=== PATIENT | female | born 1960 | race Hispanic/Latino ===

== ENCOUNTER 2020-01-30 20:23 | Inpatient (IN) | payer OTHER ==
[~2020-01-30] VITALS: Ht 157.5 cm; Wt 57.1 kg
[2020-01-30 20:53] LABS: APPEARANCE,URINE Clear (CLEAR); BILIRUBIN,URINE Negative (NEGATIVE); COLOR,URINE Yellow (YELLOW); GLUCOSE, URINE (UA) Negative (NEGATIVE); KETONES,URINE Negative (NEGATIVE); LEUKOCYTE ESTERASE ,URINE Negative (NEGATIVE); NITRATE,URINE Negative (NEGATIVE); OCCULT BLOOD,URINE Negative (NEGATIVE); PH,URINE >=9.0 (5.0-8.0); PROTEIN,URINE Negative (NEGATIVE); UROBILINOGEN,URINE 0.2 mg/dL (0.2-1.0)
[2020-01-30 20:53] LABS: BASOPHILS % (AUTO) 0.4 % (0.0-5.0); EOSINOPHILS % (AUTO) 2.3 % (0.0-8.0); HEMATOCRIT 38.6 % (36-48); LYMPHOCYTES % (AUTO) 43.4 % (21.0-51.0); MEAN CORPUSCULAR HEMOGLOBIN 30.6 pg (27.0-33.0); MEAN CORPUSCULAR HGB CONC 34.2 g/dL (32.0-36.0); MEAN CORPUSCULAR VOLUME 89.6 fL (79-99); MONOCYTES % (AUTO) 10.8 % (3.0-13.0); NEUTROPHILS % (AUTO) 42.9 % (40.0-77.0); PLATELET COUNT (AUTO) 200 K/uL (130-400); RED BLOOD CELL COUNT(AUTO) 4.31 MIL/uL (4.00-5.50); RED CELL DISTRIBUTION WIDTH 12.1 % (11.0-15.5); WHITE BLOOD COUNT (AUTO) 5.6 K/uL (4.8-10.8)
[2020-01-30 21:04] LABS: CREATININE 0.8 mg/dL (0.5-1.5); POTASSIUM 4.1 mmol/L (3.5-5.1)
[2020-01-30] MEDS ORDERED: MECLIZINE HCL 25 MG TABLET ONE (21:04)
[2020-01-30] MEDS ORDERED: ONDANSETRON HCL 4 MG/2 ML VIAL ONE (21:05)
[2020-01-30 21:08] LABS: BILIRUBIN,TOTAL 0.4 mg/dL (0.2-1.0); TOTAL PROTEIN, SERUM 7.8 g/dL (6.0-8.3)
[2020-01-31] MEDS ORDERED: IOHEXOL 350 MG/ML 100ML INFUS..BTL IV ONE (00:24)
[2020-01-31] MEDS ORDERED: ACETAMINOPHEN 325 MG TAB PO PRN ×2 (00:45)
[2020-01-31] MEDS ORDERED: ONDANSETRON HCL 4 MG/2 ML VIAL IV PRN (00:45)
[2020-01-31] MEDS ORDERED: MAG HYDROX/AL HYDROX/SIMETH ES 30 ML SUSP UDCUP PO PRN (00:45)
[2020-01-31 03:48] VITALS: BP 132/77
--- NOTE | 2020-01-31 04:05 | NUR ---
ADMIT PT ADMITTED TO ROOM 327, AAOX3. DENIES ANY DIZZINESS NOR HEADACHE AT THIS TIME. NO DISTRESS NOTED. ADMISSION CARE DONE. ADMISSION DATA BASE COMPLETED. HOME MEDS PLACED IN THE COMPUTER. ORIENTED TO ROOM AND UNIT. IN FOR MORE CARE AND MANAGEMENT. Addendum: 01/31/20 at 0449 by BE RODRIGUEZ RN RN Amended: Links added.
[2020-01-31] MEDS ORDERED: [UNRECOGNIZED DRUG - SUPPLY] PO (04:26)
[2020-01-31] MEDS ORDERED: [UNRECOGNIZED DRUG - OTHER] PO (04:26)
[2020-01-31] MEDS ORDERED: [UNRECOGNIZED DRUG - OTHER] PO (04:26)
[2020-01-31] MEDS ORDERED: [UNRECOGNIZED DRUG - CODE] OP (04:26)
[2020-01-31] MEDS ORDERED: XALA2.5OS OD (04:26)
[2020-01-31] MEDS ORDERED: [UNRECOGNIZED DRUG - OTHER] PO (04:26)
[2020-01-31] MEDS ORDERED: [UNRECOGNIZED DRUG - OTHER] PO (04:26)
[2020-01-31] MEDS ORDERED: [UNRECOGNIZED DRUG - OTHER] PO (04:26)
[2020-01-31 06:43] LABS: CREATININE 0.8 mg/dL (0.5-1.5); MAGNESIUM 2.1 mg/dL (1.80-2.40); POTASSIUM 4.1 mmol/L (3.5-5.1); THYROID STIMULATING HORMONE 2.96 uIU/mL (0.36-3.74)
[2020-01-31 08:16] VITALS: BP 109/65
--- NOTE | 2020-01-31 10:15 | NUR ---
PT WENT TO MRI
[2020-01-31 12:26] VITALS: BP 97/59
[2020-01-31 16:00] VITALS: BP 98/64
[2020-01-31 20:01] VITALS: BP 92/55
--- NOTE | 2020-01-31 20:30 | NUR ---
ASSESS SHIFT ASSESSMENT DONE, PLEASE REFER TO CHART. PT CLAIMS THERE IS NO MORE DIZZINESS. NO COMPLAINTS VERBALIZED. EXPLAINED TO PT THAT MD HAD ORDERED FOR COVID TEST. PT VERBALIZES UNDERSTANDING. NASAL SWAB FOR RAPID COVID TEST COLLECTED THEN SENT TO LAB FOR ANALYSIS. Addendum: 01/31/20 at 2155 by BE RODRIGUEZ RN RN Amended: Links added.
--- NOTE | 2020-01-31 21:30 | NUR ---
TEST RAPID COVID TEST CAME OUT NEGATIVE. COLLECTED SPECIMEN FOR COVID PCR PER PROTOCOL THEN SENT TO LAB. KEPT PT RESTED AND COMFORTABLE IN BED. CALL LIGHT WITHIN REACH. WILL MONITOR PT.
[2020-02-01 00:03] VITALS: BP 104/65
--- NOTE | 2020-02-01 02:00 | NUR ---
ROUNDS PT FAIRLY ASLEEP. NO DISTRESS NOTED. KEPT UNDISTURBED FOR NOW. WILL MONITOR PT. CALL LIGHT WITHIN REACH.
[2020-02-01 04:03] VITALS: BP 101/64
--- NOTE | 2020-02-01 05:50 | NUR ---
ROUNDS PT ALREADY AWAKE. NO CONCERNS VERBALIZED. NO DISTRESS NOTED. KEPT COMFORTABLE IN BED. FRO MORE CARE.
[2020-02-01 08:32] VITALS: BP 116/72
[2020-02-01 11:38] VITALS: BP 109/62
--- NOTE | 2020-02-01 11:44 | NUR ---
DR. RICHARDSON CALLED DR. RICHARDSON, PT FEELING DIZZILY, ORDER TO GIVE MECLIZINE HCL 25 MG Q6 HR.
[2020-02-01] MEDS ORDERED: MECLIZINE HCL 25 MG TABLET PO PRN (11:45)
[2020-02-01] MEDS ORDERED: MECLIZINE HCL 25 MG TABLET ONE (11:48)
[2020-02-01 16:31] VITALS: BP 102/62
[2020-02-01 20:00] VITALS: BP 105/58
--- NOTE | 2020-02-01 20:22 | NUR ---
INITIAL: Met w pt this afternoon to discuss dcp. Pt mentions that she lives w her spouse and children. Prior to admission she was independent w ambulation and her dtr assists her if needed. Pt does not own any DME or receive services. Per pt she feels safe and comfortable to return home at mt. CM to continue to follow and wait for Md recommendations. Addendum: 02/01/20 at 2022 by HERBERT JAMISON Amended: Links added.
[2020-02-02] VITALS (7 sets, daily range): BP systolic 92–107; BP diastolic 56–72
[2020-02-02 05:20] LABS: BASOPHILS % (AUTO) 0.5 % (0.0-5.0); EOSINOPHILS % (AUTO) 2.3 % (0.0-8.0); HEMATOCRIT 36.9 % (36-48); LYMPHOCYTES % (AUTO) 44.2 % (21.0-51.0); MEAN CORPUSCULAR HEMOGLOBIN 30.6 pg (27.0-33.0); MEAN CORPUSCULAR HGB CONC 33.9 g/dL (32.0-36.0); MEAN CORPUSCULAR VOLUME 90.4 fL (79-99); MONOCYTES % (AUTO) 10.5 % (3.0-13.0); NEUTROPHILS % (AUTO) 42.3 % (40.0-77.0); PLATELET COUNT (AUTO) 180 K/uL (130-400); RED BLOOD CELL COUNT(AUTO) 4.08 MIL/uL (4.00-5.50); WHITE BLOOD COUNT (AUTO) 4.4 K/uL (4.8-10.8)
[2020-02-02 05:47] LABS: ALBUMIN 3.4 g/dL (3.5-5.0); BILIRUBIN,TOTAL 0.4 mg/dL (0.2-1.0); CREATININE 0.8 mg/dL (0.5-1.5); POTASSIUM 4.1 mmol/L (3.5-5.1); TOTAL PROTEIN, SERUM 6.9 g/dL (6.0-8.3)
[2020-02-02] MEDS ORDERED: HYDROXYZINE HCL 25 MG TABLET PO PRN (14:30)
[2020-02-03 03:50] VITALS: BP 106/62
[2020-02-03 05:30] LABS: BASOPHILS % (AUTO) 0.4 % (0.0-5.0); EOSINOPHILS % (AUTO) 1.9 % (0.0-8.0); HEMATOCRIT 38.1 % (36-48); LYMPHOCYTES % (AUTO) 40.2 % (21.0-51.0); MEAN CORPUSCULAR HEMOGLOBIN 30.6 pg (27.0-33.0); MEAN CORPUSCULAR HGB CONC 33.9 g/dL (32.0-36.0); MEAN CORPUSCULAR VOLUME 90.5 fL (79-99); MONOCYTES % (AUTO) 10.2 % (3.0-13.0); NEUTROPHILS % (AUTO) 47.1 % (40.0-77.0); PLATELET COUNT (AUTO) 201 K/uL (130-400); RED BLOOD CELL COUNT(AUTO) 4.21 MIL/uL (4.00-5.50); RED CELL DISTRIBUTION WIDTH 11.9 % (11.0-15.5); WHITE BLOOD COUNT (AUTO) 4.7 K/uL (4.8-10.8)
[2020-02-03 05:54] LABS: ALBUMIN 3.6 g/dL (3.5-5.0); BILIRUBIN,TOTAL 0.4 mg/dL (0.2-1.0); CREATININE 0.8 mg/dL (0.5-1.5); POTASSIUM 3.9 mmol/L (3.5-5.1); TOTAL PROTEIN, SERUM 7.1 g/dL (6.0-8.3)
[2020-02-03 07:30] VITALS: BP 101/62
[2020-02-03 11:00] VITALS: BP 106/59
[2020-02-03] MEDS: HYDROXYZINE HCL 25 MG TABLET PO SCH ×3 (11:00→20:56)
[2020-02-03 16:00] VITALS: BP 102/62
--- NOTE | 2020-02-03 18:30 | NUR ---
Attempted to notify Dr. Paris, ordering MD, of 2d Echo results. 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 Was covering for Nazario Vitale, who has not yet rounded. Notified Dr. Hylton as well, who stated he will discharge pt in am. Addendum: 02/03/20 at 1853 by BRIANNA WHITE RN RN Call placed to Dr. Nazario Vitale's phone to notify, no answer, voicemail message says mailbox is full.
[2020-02-03 19:59] VITALS: BP 97/63
[2020-02-03 23:18] VITALS: BP 90/56
--- NOTE | 2020-02-04 02:16 | NUR ---
SLEEPING Pt sleeping,arousable.Voiced no complaints of pain or discomfort.Pt is for possible discharge in am.
[2020-02-04 03:44] VITALS: BP 98/57
[2020-02-04 05:08] LABS: BASOPHILS % (AUTO) 0.7 % (0.0-5.0); HEMATOCRIT 37.2 % (36-48); LYMPHOCYTES % (AUTO) 39.7 % (21.0-51.0); MEAN CORPUSCULAR HEMOGLOBIN 30.9 pg (27.0-33.0); MEAN CORPUSCULAR HGB CONC 33.9 g/dL (32.0-36.0); MEAN CORPUSCULAR VOLUME 91.2 fL (79-99); MONOCYTES % (AUTO) 11.3 % (3.0-13.0); NEUTROPHILS % (AUTO) 46.1 % (40.0-77.0); PLATELET COUNT (AUTO) 181 K/uL (130-400); RED BLOOD CELL COUNT(AUTO) 4.08 MIL/uL (4.00-5.50); RED CELL DISTRIBUTION WIDTH 12.1 % (11.0-15.5); WHITE BLOOD COUNT (AUTO) 4.4 K/uL (4.8-10.8)
[2020-02-04 05:24] LABS: ALBUMIN 3.5 g/dL (3.5-5.0); BILIRUBIN,TOTAL 0.4 mg/dL (0.2-1.0); CREATININE 0.7 mg/dL (0.5-1.5); POTASSIUM 3.9 mmol/L (3.5-5.1)
[2020-02-04 07:59] VITALS: BP 103/62
[2020-02-04 11:30] VITALS: BP 104/57
[2020-02-04] MEDS: HYDROXYZINE HCL 25 MG TABLET PO SCH ×2 (12:11→12:16)
--- NOTE | 2020-02-04 14:15 | NUR ---
DISCHARGE INSTRUCTIONS discussed with pt in monegasque ,Olive Agosto RN voices understanding of instructions
== END 2020-02-04 14:20 | disposition home or self-care (01) | DRG 149 ==
LOC: EDH 20:23 → OBSVTOIN 01-31 00:42 → EDHIP 01-31 00:42 → 3DH 01-31 03:58
PROVIDERS: ADMIT Internal Medicine; ATTEND Internal Medicine
DX: R42 Dizziness and giddiness (principal); R00.1 Bradycardia, unspecified; I95.9 Hypotension, unspecified; Z20.828 Contact with and (suspected) exposure to other viral communicable diseases; F41.1 Generalized anxiety disorder; F32.9 Major depressive disorder, single episode, unspecified; H40.9 Unspecified glaucoma; F60.7 Dependent personality disorder; I10 Essential (primary) hypertension; R51 Headache; Z83.3 Family history of diabetes mellitus
CPT/HCPCS: 36415; 70450; 70496; 70498; 70551; 80048; 80053; 80061; 81003; 82948; 83735; 84443; 84484; 85025; 87426; 93005; 93306; 93356; G0378; J2405; Q9967; U0003